=== PATIENT | female | born 1965 | race Hispanic/Latino ===

== ENCOUNTER → 2019-10-21 08:53 | Outpatient (CLI) | payer BC, SELFPAY ==
[2019-10-23 12:09] LABS: COVID19 Sendout Not detected (Not Detect)
== END ==
PROVIDERS: Visit Provider Physician Assistant
DX: Z11.59 Encounter for screening for other viral diseases (principal)
CPT/HCPCS: 87635

== ENCOUNTER 2019-10-24 06:38 | Day surgery (SDC) | payer BC, SELFPAY ==
[2019-10-24] VITALS (13 sets, daily range): BP systolic 116–155; BP diastolic 60–93; PULSE 70–90; RESP 10–18; TEMP 35.7–37.2; O2SAT 95–99; BMI 29.6
--- NOTE | 2019-10-24 | DI.RAD.S_ITS ---
PROCEDURE: XR CALCANEOUS LT MIN 2V INDICATIONS: ORIF CALCANEOUS TECHNIQUE: Multiple intraoperative fluoroscopic views of the left calcaneus acquired. COMPARISON: None. FINDINGS: Multiple intraoperative fluoroscopic images of the left calcaneus demonstrate instrumentation of comminuted left calcaneal fracture using plate and screw fixation. Final images demonstrate anatomic alignment and no gross hardware complication. IMPRESSION: Intraoperative fluoroscopic support for ORIF of the calcaneus. Please see procedural note for further details. Dictated by: Oscar Moreland M.D. on 10/24/2019 at 13:21 Approved by: Oscar Moreland M.D. on 10/24/2019 at 13:25
[2019-10-24] MEDS: LACTATED RINGERS 1,000 ML 42 ML IV ×3 (07:30→13:06)
[2019-10-24] MEDS: ACETAMINOPHEN 325 MG TABLET 975 MG PO ×3 (07:32→20:22)
[2019-10-24] MEDS: SCOPOLAMINE 1 PATCH TOP (07:32)
--- NOTE | 2019-10-24 07:40 | PM.PREOP ---
Pre-operative Note COVID-19 COVID-19 status: Negative Interval Note History & Physical reviewed/Exam performed by Physician: Yes Changes to H&P: No
--- NOTE | 2019-10-24 08:11 | PM.OP.1 ---
Operative Date/Time/Diagnoses Date of procedure: 10/24/19 Time of procedure: 08:30 Pre-op diagnosis: Displaced intra-articular calcaneus fracture S92.062A Post-op diagnosis: same Procedure & Clinicians Procedure: Open reduction internal fixation left displaced intra-articular calcaneus fracture CPT code 50861 Same procedure as scheduled: Yes Indications: The patient is a 53-year-old female that sustained a left displaced intra-articular calcaneus fracture and was indicated for surgical treatment. Patient was counseled regarding the rationale and the risk for the surgery. Risks were discussed include infection, bleeding, damage to nerves and blood vessels, wound dehiscence, nonunion, malunion, symptomatic hardware, need for hardware removal, DVT, PE, posttraumatic arthritis, and the ability to return to his desired level of function, generalized dissatisfaction with the surgical procedure cardiopulmonary complications up to including . The patient expressed understanding all the risks and elected to proceed. Patient understands the healing bones and soft tissues will take approximately 3 months for full recovery will acquire 6-9 months. Patient also understands that is critical to elevate the operative fixed leg for the 1st 2-3 weeks after surgery to control both swelling and pain. The patient was counseled no weight will be allowed on the surgical leg for approximately 8-12 weeks or until the patient is instructed that it is safe to initiate weight-bearing. Patient expressed full understanding these issues and would like to proceed with surgery. Consent was signed. Surgeon: Tasha Patel Click Yes if Unassisted: Yes Anesthesia Type: General and Peripheral nerve block Operative Notes Findings: Displaced intra-articular calcaneus fracture was encountered. Lateral extensile approach was utilized. K-wires were placed in the cuboid, talar neck and fibula for no-touch retraction. The lateral wall was removed. The depressed and rotated lateral half of the posterior facet was removed and protected on the back table. Fracture was mobilized. K-wire was placed to hold the medial column. Reduction of the posterior facet was achieved. And pinned in place. Lateral wall was replaced. Fracture was Stabilized with Arthrex left-sided medium perimeter plate. Medium Hemovac was utilized. Closure Type: primary Specimen(s): none sent Estimated Blood Loss (mL): 30 Tourniquet time (min): 130 Procedure in detail: After obtaining written and informed consent site of surgery was marked and the patient was taken to the operating room. The patient was placed supine on operating table. A a regional anesthetic block was placed by the anesthesia team for postoperative pain control. General endotracheal anesthesia was obtained. Tourniquet was placed on the upper aspect of the thigh. Patient was then placed into the lateral decubitus position on the beanbag. All bony prominence well padded. An SCD was placed on the contralateral lower extremity. The patient's operative leg was then prepped and draped in standard sterile fashion. Formal time-out procedure was performed confirming patient, site of surgery, site of surgery and administration of appropriate preoperative antibiotics and presence of informed consent. Implants were present in the room and accounted for. Exsanguination with an Esmarch tourniquet with a was then inflated to 250 mm of mercury. At that time the lateral extensile approach was performed. Full-thickness flaps were raised using a no-touch technique. Peroneal tendons were elevated off the lateral wall of the calcaneus. Distally the incision curved towards the calcaneal cuboid joint. The lateral wall was osteotomized and removed. Three K-wires were used to retract the skin flap. These were placed into the cuboid the talus and the fibula and bent out of the way. A Schanz pin was placed into the calcaneal tuberosity to manipulate the tuberosity. The displaced lateral half of the posterior facet piece was mobilized, taken to the back table and cleaned of hematoma. Two K-wires were placed into it as joysticks. The anterior component of the fracture was reduced and held with guide pins. History elevator was used medially to mobilize the medial column and at reduction maneuvers on the Shantz pin into valgus the tuberosity and reestablished the medial column. A K-wire was placed across this to hold reduction. The joint piece was then brought back into the field. It was attached to a large fragment of tuberosity and on placement back in place there was a persistent gap at the fracture site as visualized on the Broden views. Eventually, To anatomically reduce the joint surface the tuberosity fragment was osteotomized making the joint osteochondral please smaller. This then was able to be reduced anatomically along the to the remaining medial aspect of the posterior facet and held in place 2 guidewires. This was appropriate on Broden views. Next a 3 5 lag screw was placed across the fragment. However this did not obtain good fixation in the near bone and sunk into the bone therefore it was removed with the decision to you lag fixation over the perimeter plate. The wires in the anatomically reduced posterior facet were kept in place. The osteotomized piece of the tuber was then contoured and part of it placed back under the lateral facet piece and the remaining tuber as a bone graft wedge. The remainder of the tuber was then placed into the central calcaneus where there was bone loss. Lateral wall was then replaced. An Arthrex left-sided medium perimeter plate was then placed over the lateral aspect of the wall of the calcaneus and secured posterior anteriorly and then through the posterior facet 1st with BB tacks and then with a lag screw through the plate capturing the posterior facet piece. Lateral x-ray confirmed adequate positioning on the calcaneus and Broden view confirmed appropriate reduction of the posterior facet. Then a combination of cortical and locking screws were placed through the plate. Final x-rays were taken in [place] is a views lateral views and axial heel views confirming appropriate screw length and placement. There was 1 long screw that was exchanged. Additionally oblique view of the foot confirmed hardware placement outside of the calcaneal cuboid joint. Alignment of the posterior facet and Bohler's angle were restored. The tourniquet was released. Hemostasis was achieved. Once that was completed medium Hemovac drain was placed. The flap was then repaired in layers using 0 Vicryl to 2-0 Vicryl and 4 0 Monocryl and 3 O nylon. Allowgower Donati sutures are were used in the skin. The flap was closed without difficulty. Bulky dressing and splint were applied. The patient was woken from anesthesia and taken to recovery room. Complications: none Post-operative Condition: stable Disposition: PACU Plan for aftercare: The patient will be started on aspirin on postop day 1 for DVT prophylaxis. They will be strict elevation and strict nonweightbearing. They will have the drain removed in the morning prior to being discharged. Will follow up in my clinic in approximately 2 weeks time to check on the incision. Sutures will stay a minimum of 2 weeks but up to 4 weeks+ if needed. Will go into a High tide boot in clinic and start range of motion but remain nonweightbearing.
[2019-10-24] MEDS: CEFAZOLIN 2 GM/100 ML FROZ.PIGGY IV ×2 (08:45→16:54)
--- NOTE | 2019-10-24 09:27 | SUR.OPER ---
Lateral on gonzalez bag, head on pillow, gel axillary roll in place, bottom leg bent with gel pad under knee to foot, upper leg straight and supported with pillows. Upper arm supported by pillows and secured over bottom arm to padded arm board. Safety belt at hip, tape over blanket lower legs.
[2019-10-24] MEDS: BUPIVACAINE 0.25% W/ EPI 30 ML VIAL INJ (12:09)
--- NOTE | 2019-10-24 12:46 | SUR.OPER ---
Pt. has a lesion on distal lateral side of the left leg; it's observed after splint was removed by Dr. Patel
[2019-10-24] MEDS: LACTATED RINGERS 1,000 ML 100 ML IV ×2 (13:51→14:32)
--- NOTE | 2019-10-24 14:15 | PC.NURSE ---
pt received to room 223- spouse, Danny, at bedside- she had sousa during case but has not voided post op yet. She is to remain non-weight bearing to the left lower extremity - left lower extrmeity remains numb and she is unable to move toes just yet- they are warm to touch - LR @ 100cc/h - general diet ordered for dinner
[2019-10-24] MEDS: DOCUSATE 100 MG CAPSULE PO (20:22)
[2019-10-25] MEDS: CEFAZOLIN 2 GM/100 ML FROZ.PIGGY IV (00:36)
[2019-10-25] MEDS: LACTATED RINGERS 1,000 ML 100 ML IV (00:38)
[2019-10-25 00:48] VITALS: BP 121/68; PULSE 71; RESP 20; TEMP 36.5; O2SAT 98
[2019-10-25 04:52] VITALS: BP 113/63; PULSE 76; RESP 20; TEMP 36.8; O2SAT 96
--- NOTE | 2019-10-25 07:42 | P.DS_ITS ---
History of Present Illness History of Present Illness Date Patient Seen: 10/25/19 Time Patient Seen: 07:42 Date of Onset of Symptoms: 10/08/19 Chief complaint: ORIF LEFT CALCANEUS Narrative: Kxmit[age]k-ihcy-old female that broke her left calcaneus the 2nd step of a ladder. She was initially seen in [place] where she lives. Unfortunately due to unforeseen circumstances with Hospital availability she was not able to be fixed in [place]. I evaluated her here found to have a displaced intra-articular calcaneus fracture with a severely depressed lateral half of the posterior facet. She was indicated for open reduction internal fix ation to restore joint alignment reduce the risk of posttraumatic arthritis and dysfunction. Discharge Providers Provider Discharge Date: 10/25/19 Consults: 10/24/19 06:58 Consult to Anesthesiology Routine Comment: Consulting Provider: Anesthesiologist Reason for consultation: Post operative pain managment Has provider been notified: No 10/24/19 13:39 Consult to Discharge Planning Routine Comment: Consult to Physical Therapy Evaluate & Treat Comment: KYREE MEZA Physician Instructions: Evaluate and Treat Consult to Respiratory Therapy Evaluate & Treat Comment: Physician Instructions: Evaluate and treat Discharge provider: Tasha Patel MD Summary Hospital Course Discharge Diagnosis: Left intra-articular calcaneus fracture Hospital Course: Patient admitted to the acute care unit following surgery. Pain was controlled on the floor. She tolerated a p.o. diet. A Hemovac drain was left in place overnight with output of 48, 50, 10 over 3 shifts and then removed prior to discharge. Status at Discharge Cognitive/behavioral status at discharge: oriented Functional status at discharge: uses cane/walker Overall status at discharge: patient is not back to baseline Time Spent with Patient Time spent: Less than 30 minutes Exam Vital Signs (past 8 hours): - 10/25/19 00:48 10/25/19 04:52 Temperature 97.7 F 98.3 F Pulse Rate 71 76 Respiratory Rate 20 20 Blood Pressure 121/68 113/63 Pulse Oximetry 98 96 Oxygen Delivery Method Room Air Oxygen Flow Rate 0 Discharge Plan Discharge Plan Patient Disposition: Home Discharge Med Rec/Prescriptions Prescriptions: New acetaminophen 325 mg Tablet 975 mg PO TID Qty: 60 RF: 0 docusate sodium [DOK] 100 mg Capsule 100 mg PO BID Qty: 30 RF: 1 oxycodone 5 mg Tablet 5 - 10 mg PO Q3HR PRN (Reason: Pain, Moderate (4-6)) Qty: 60 RF: 0 ketorolac 10 mg tablet 10 mg PO Q6H 5 Days Qty: 20 RF: 0 aspirin 325 mg tablet,delayed release (DR/EC) 325 mg PO DAILY Qty: 42 RF: 0 ondansetron HCl [Zofran] 4 mg tablet 4 mg PO Q8H PRN (Reason: nausea and vomiting) Qty: 7 RF: 1 Continued losartan-hydrochlorothiazide 100-12.5 mg Tablet 0.5 tab PO DAILY RF: 0 Follow up/Referrals: Tasha Patel MD [Physician] - Discharge Orders: Discharge (Order); Ordered 10/25/19 Ordered By: aTsha Patel Provider Discharge Instructions Diet: Diet as Tolerated Activity: NWB LLE Skin/Wound/Dressing Care Report to your healthcare provider any signs of infection, such as:: chills, fever, night sweats, increased pain, unusual drainage and unusual redness Dressing: keep clean dry intact Other wound treatment: At-Home Instructions - Dr. Patel Surgery: Calcaneus fracture open reduction internal fixation Cast/Splint/Dressing Care Instructions 1) Keep cast/dressing clean and dry. 2) May bathe - but cast/dressing must remain dry. 3) Should the cast become wet, you need to come into emergency department or call your physician's clinic immediately for cast removal and replacement. Moisture can cause skin breakdown and lead to infection if left untreated. 4) Do not stick any sharp object down the cast to itch, as this can cause scrapes/cuts/punctures which can lead to infection. 6) Observe for increasing pain in the extremity with the cast, finger/toe-tips turning blue/purple, or numbness and tingling in your toes/fingers. Should any of these symptoms arise, you need to be seen immediately for evaluation of swelling and increasing compartment pressures within your affected extremity. 7) Keep your affected extremity elevated - Toes Above your Nose? - This is bueno in the first two weeks after surgery to minimize swelling. 8) You may ice your extremity, being careful to prevent melting ice from saturating into the splint/cast. Activity No heavy lifting greater than 10 [address] while on narcotic pain medication. Do not get your dressing/cast/splint wet! You must remain non-weight bearing on your operative extremity. Use crutches or a walker for ambulation. No driving until you are otherwise instructed by your physician. This will be addressed at your first follow-up appointment. Discharge Pain Medications You will be given a prescription for pain medication. You should start taking this the same day after your surgery. Wean off as tolerated. Do not wait to take the pain medication until the pain is severe, as it will be difficult to catch up once this occurs. The pain medication usually reaches its full effect ~1 hour after ingesting. If you have been sent home on Colace, this medication should be taken until you are off all narcotic (i.e. Vicodin, Percocet, Oxycodone, etc) pain medications, to prevent constipation. You may also obtain this or another stool softener over the counter to prevent or alleviate constipation. if you have been sent home on Toradol(ketorolac) then take this as directed, but do not take any other anti-inflammatories such as Aleve, ibuprofen, Motrin, naproxen while you taking this medication, because it is a very strong anti- inflammatory. You may take the pain medication (oxycodone or Tylenol). Once you have finished the Toradol/ketorolac prescription you can take regular i buprofen. The Toradol prescription is usually prescribed to take 3 to 4 times a day for up to 5 days and can help limit the amount of narcotic pain medication required. Percocet or Vicodin have Tylenol in their ingredient lists. You must be careful not to exceed 3,000mg (3 grams) of Tylenol, from all sources, within a single 24-hr period. This means that you may not take more than 10 pills within a 24- hr period. Do NOT take Regular or Extra Strength Tylenol when taking your Percocet or Vicodin medications. -Some common side effects of the narcotic pain medications (Percocet, Oxycodone, Vicodin, etc.) include nausea and itching. Benadryl is a great over the counter medication that helps calm your stomach, decreases your anxiety levels, and minimizes the itching. You can easily purchase this at your local pharmacy as an bfig-wos-buvsacl medication. Please abide by the instructions as printed on the bottle. If your nausea persists, make sure to take small amounts of crackers or other curriculum manager foods. Follow-Up/Emergency Contacts Please call for an appointment in either [place] or [place], if one has not been scheduled. Follow up 2 weeks after surgery. [phone] Contact the office if you have any of the following: ? Painful swelling or numbness ? Unrelenting pain ? Fever (over 101?- it is normal to have a low grade fever for the first day or two following surgery) or chills ? Redness around the incisions ? Color changes ? Continuous bleeding or drainage from the incision (a small amount is expected) ? Excessive nausea or vomiting ? Difficulty breathing If you have an emergency that requires immediate attention, proceed to the nearest emergency room. Blood Clot Prophylaxis You will need to complete a total 6-week (42 days) course of Aspirin (325 mg daily) after surgery, to minimize the risk of blood clots following surgery. You may alternatively purchase or use eefw-ayz-ezhazhw generic equivalent Aspirin. If you already have ?baby? Aspirin (81mg) at home, you can take 4 ?baby? Aspirin to total 324mg for the equivalent dose. Pain Medications: It is the policy of [facility] that narcotic medications will only be refilled during office hours. Additionally, due to the alarming rate of narcotic pain medication abuse/dependence, it has become necessary for physician practices to closely manage patient use of prescription narcotic pain relievers, such as Vicodin ([place]og[place]ell), Percocet, and Oxycodone products. Narcotic pain management in the postoperative period may not exceed 6 weeks. If narcotic pain management is required beyond 90 days, then a referral to a Chronic Pain Specialist will be made. If a request for a medication prescription has been made, the physician must review your chart prior to authorizing the request. Please be patient with office staff. If you call during patient hours, your call may not be returned until the end of the day. A visit will be required before a narcotic pres cription can be issued. Dr. Tasha Kc [address] [place] [address] [email or web address] [email or web address] Discharge Data Attending Provider: Tasha Patel
[2019-10-25 07:44] VITALS: BP 148/83; PULSE 76; RESP 18; TEMP 36.7; O2SAT 96
[2019-10-25 08:28] VITALS: BP 148/83
[2019-10-25] MEDS: LOSARTAN 50 MG TABLET PO (08:28)
[2019-10-25] MEDS: ACETAMINOPHEN 325 MG TABLET 975 MG PO (08:28)
[2019-10-25] MEDS: DOCUSATE 100 MG CAPSULE PO (08:28)
[2019-10-25] MEDS: hydroCHLOROthiazide 25 MG TABLET 6.25 MG PO (08:30)
--- NOTE | 2019-10-25 11:09 | PT.IIE ---
Current Diagnoses Displaced intraarticular fracture of left calcaneus, initial encounter for closed fracture (10/24/19) Surgery Performed Operation Date: 10/24/19 07:45 Actual Procedures p ORIF Calcaneal Fracture(Left) - Tasha Patel MD Physical Therapy Inpatient Evaluation/Re-Eval M1 PT/OT-IP Prior Functional Status Start: 10/25/19 12:24 Freq: NEEDED Status: Active Protocol: Document 10/25/19 11:09 AB (Rec: 10/25/19 12:39 AB [email or web address]) Medical Review Prior Functional Status Medical History Reviewed Yes Communication able to make needs known Mobility and Gait pt stated that she is independent with all mobilities and ambulation without AD Social History Household Members spouse Living Arrangements Mobile home Number of Floors (Floors) One Floor Number of Stairs To Enter/Railing? 2 steps with bilateral rails Home Environment Standard Height Toilet,Walk in Shower Home Equipment Front Wheel Walker,Manual Wheelchair,Shower Seat with Backrest,Hand Held Shower,Grab Bars Near Toilet Employment Status Unemployed Additional Social History Comment has a knee scooter M2 PT-IP Current Condition Start: 10/25/19 12:24 Freq: NEEDED Status: Active Protocol: Document 10/25/19 11:09 AB (Rec: 10/25/19 12:39 AB [email or web address]) Physical Therapy Current Condition Current Condition Evaluation Date 10/25/19 Treatment Diagnosis L calcaneus fx s/p ORIF; difficulty in walking Onset Date 10/24/19 Weight Bearing Status Weight Bearing Status Non-Weight Bearing Allowed Weight Bearing Amount (enter % NWB LLE or #) (%) M3 PT-IP Subjective Start: 10/25/19 12:24 Freq: NEEDED Status: Active Protocol: Document 10/25/19 11:09 AB (Rec: 10/25/19 12:39 AB [email or web address]) Subjective Physical Therapy Visit Type Type Initial Evaluation Visit Start Time 11:09 Visit Stop Time 11:48 Total Visit Minutes 39 Number of DIRECTOR INTERNATIONAL Visits 0 Physical Therapy Visit Comments Patient Comments pt is agreeable to do PT Therapy Pain Assessment Pain Present Pain Present Denied Pain M4 PT-IP Mobility and Gait Start: 10/25/19 12:24 Freq: NEEDED Status: Active Protocol: Document 10/25/19 11:09 AB (Rec: 10/25/19 12:39 AB [email or web address]) PT-Bed Mobility Assessment Supine to Sit Supine to Sit Standby Assistance Sit to Supine Sit to Supine Standby Assistance PT-Transfer Assessment Sit to and From Stand Sit to and from Stand Minimal Assistance,1 Person Assistance,Use of Upper Extremities Equipment Transfer Assistive Device Bed Rail Orthotic/Prosthetic Devices or Brace: Yes Transfers Transfer Destination Bedside Commode Transfer Technique ambulated using knee scooter Transfer Ability Level of Assist Standby Assistance,Contact Guard Assistance,Use of Upper Extremities Comments Mobility Comments spouse in room with pt. spouse has been assisting pt since pt had fx last october 07. pt has been using her knee scooter since fx and spouse assists pt. pt completed supine to sit SBA and was able to sit on EOB SBA. completed sit to stand and spouse assists pt safely. pt ambulated using knee scooter ~ 30 ft. assisted towards the stairs. pt and spouse completed up/down steps using rails and spouse assisting pt. pt was able to maintain NWB on LLE and spouse was able to safely assist pt. assisted pt back to her room and ambulated back to bed using knee scooter SBA. completed sit to supine SBA. postioned and elevated LLE in bed. call light and table placed within reach. Gait Assessment Gait Gait Assistance Required: Standby Assistance,Contact Guard Assist,1 Person Assist Distance (Feet) 30 Able to Maintain Weight Bearing Status Yes During Gait Assistive Devices Assistive Device Gait Belt Factors Limiting Gait Function Factors Limiting Gait Function Decreased Activity Tolerance, Decreased Strength,Limited Range of Motion,Poor Balance Comments Gait Comments pt used knee scooter for ambualtion Stair Climbing Assessment Evaluation Level of Assist On Stairs Maximal Assistance,1 Person Assistance Devices Stair Climbing Assistive Devices Left Railing,Right Railing Technique/Endurance Stair Climbing Direction Ascend and Descend Stair Climbing Technique Step to Step Number of Steps Climbed 3 Query Text: Stair Climbing Set # Repetitions (reps) 1 Comments Stair Climbing Comments spouse was able to safely assist pt with stairs. PT-Balance Assessment Sitting Balance and Reactions Static Sitting Balance Ability Normal Dynamic Sitting Balance Ability Normal Standing Balance and Reactions Static Standing Balance Ability Fair Dynamic Standing Balance Ability Fair Device Used knee scooter M5 PT-IP Objective Assessments Start: 10/25/19 12:24 Freq: NEEDED Status: Active Protocol: Document 10/25/19 11:09 AB (Rec: 10/25/19 12:39 [email or web address]) Orientation Orientation/Cognition Level of Alertness Alert Orientation Name,Age,Birthday,Month,Date, Year,Day of Week,Place, Situation Language Function Ability No Deficits Noted Safety Awareness Understands Safety Issues Memory Description No Deficits Noted Gross Range of Motion Lower Extremity ROM Impairments L ankle on cast Strength Lower Extremity Strength Assessment Left Impaired Hip 4-/5 Knee 3+/5 Coordination Assessment Gross Coordination Gross Coordination WNL Sensation Assessment Sensation Gross Sensation Left LE Impaired Light Touch Impaired Proprioception (Position) Impaired Sensation Description Numbness Muscle Tone Muscle Tone WNL Yes M6 PT-IP Treatment Start: 10/25/19 12:24 Freq: NEEDED Status: Active Protocol: Document 10/25/19 11:09 AB (Rec: 10/25/19 12:39 [email or web address]) Physical Therapy Treatment Education Education Provided Weight Bearing Status,Safety M7 PT-IP Assessment and Plan Start: 10/25/19 12:24 Freq: NEEDED Status: Active Protocol: Document 10/25/19 11:09 AB (Rec: 10/25/19 12:39 [email or web address]) PT Summary Assessment and Plan Potential Rehabilitation Potential Good Status of Condition at Evaluation Stable Summary Impairments Pain,ROM,Strength,Balance, Coordination,Sensation,Tone, Cognition,Bed Mobility, Transfers,Gait,Activity Tolerance Assessment Summary pt requires min to max A with mobility and spouse is able to assist pt safely. pt plans to go home today. pt may go home with assistance when medically stable and will require outpt PT. Goals Bed Mobility Goal Independent Transfer Goal Independent Gait Goal Independent Gait Distance 100 Days to Meet Goals 3 Frequency of Treatment Frequency Of Treatment Twice a Day Treatment Plan Physical Therapy Treatment Plan Bed Mobility Training,Transfer Training,Gait Training, Therapeutic Exercise,Balance Retraining,Post Op Education, Discharge Planning,Hot or Cold Pack,Neuromuscular Re-ed, Coordination Retraining,Manual Therapy Recommendations To Nursing Amount of Assist Needed 1 Person Assist Discharge Recommendations PT Discharge Recommendations Home with 06/09 Assist, Outpatient PT Transportation Needs at Discharge Private Vehicle
[2019-10-25 11:24] VITALS: BP 133/74; PULSE 66; RESP 19; TEMP 36.8; O2SAT 96
[2019-10-25] MEDS: OXYCODONE IR 5 MG TABLET PO (12:36)
--- NOTE | 2019-10-25 12:40 | PC.NURSE ---
IV removed. Pt cleared for discharge by PT. Pt is dressed and ready to go. Pt given Oxycodone 5mg for transfer home. Went over d/c instructions with Pt and Spouse-discussed d/c meds, side effects, time of last dose, reviewed stroke education, s/s of infection and when to call MD. Drink plenty of fluids to prevent constipation or dehydration. NWB. Pt to follow up as directed by Dr. Patel. Pt and Spouse deny further questions and Pt was taken out via w/c by BENEFITS ASSISTANT to POV with Spouse and all belongings.
--- NOTE | 2019-10-25 12:59 | CM.DANOTE ---
Addendum entered by Gemini Marlow LPN 10/25/19 13:19: A check in now shows that pt was cleared by PT and did already leave for home setting in company of spouse. no d/c concerns were noted by the care team members. Original Note: Discharge Planning/Care Management DCP: assessment: case received, EMR reviewed, dc to home order noted. Discussed in Team Rounds. PT noted that they would see pt for the first time today. Pt is a 53 year old female who admitted yesterday for a scheduled ORIF L Calcaneus Surgeon Dr. Patel Payer: [employer] [facility]. Will check in with pt now and follow. CM Discharge Assessment Start: 10/25/19 12:39 Freq: Status: Discharge Protocol: Document 10/25/19 12:39 ITV (Rec: 10/25/19 12:58 ITV [id number]) Discharge Planning Assessment Advance Directives? No History Provided By Medical Record Prior Living Arrangements Mobile home Household Members spouse Review Status In Process
== END 2019-10-25 12:43 | disposition home or self-care (01) ==
LOC: OR 07:01 → AC 08:43
PROVIDERS: Referring Provider Orthopaedic Surgery Foot and Ankle Surgery; Visit Provider Orthopaedic Surgery Foot and Ankle Surgery
PROC: (CPT 28415; principal; 2019-10-24 07:45)
DX: S92.062A Displaced intraarticular fracture of left calcaneus, initial encounter for closed fracture (principal); W11.XXXA Fall on and from ladder, initial encounter
CPT/HCPCS: 28415; 73650; 76000; 94760; 97116; 97161; J0330; J0690; J1100; J1885; J2250; J2405; J2704; J3010